=== PATIENT | male | born 1970 | race Caucasian/White ===

== ENCOUNTER 2016-05-13 15:34 | Emergency (ER) | payer SELFPAY ==
--- NOTE | 2016-05-13 16:41 | DIAGNOSTIC IMAGING REPORT ---
PROCEDURE: XR CHEST 1 VIEW INDICATION: CHEST PAIN TECHNIQUE: Portable AP view (1615 hours). COMPARISON: None. FINDINGS: Allowing for overlying wires and electrodes, lungs are clear. Heart and mediastinum are normal. Thorax is normal. IMPRESSION: 1. Negative chest.
--- NOTE | 2016-05-13 18:45 | ED CLINICAL REPORT ---
Clinical Report - Physicians/Mid Levels [facility] [address] [place] [address] 05/13/2016 15:36 Patient: BIANKA RAMACHANDRAN Time Seen: 15:43. Arrived- By private vehicle. Historian- patient. HISTORY OF PRESENT ILLNESS Chief Complaint: CHEST PAIN. At its maximum, severity described as moderate. When seen in the E.D., it was almost gone. Modifying factors- worsened by deep breaths. Not relieved by anything. This started about 2 days ago and is still present but is better now. Onset during emotional upset. It is described as sharp and "pain" and it is described as located in the left chest area. No radiation. No nausea, vomiting or diaphoresis. He has had difficulty breathing (Pt states he begins to feel anxious, then feels SOB. Pt states he has been under a lot of stress lately.). Similar symptoms previously: Occasionally. Recent medical care: Not recently seen/assessed. REVIEW OF SYSTEMS No fever, chills, cough, pedal edema or calf pain. No fainting episodes, headache, sore throat, blurred vision or abdominal pain. No black stools, difficulty with urination, skin rash, enlarged lymph nodes or joint pain. No bloody stools. All systems otherwise negative, except as recorded above. PAST HISTORY Problems: no known problems. Additional Surgeries: no known surgeries. Medications: Aspirin Oral (Tablet 325 mg) 2 tablets (took this AM). Allergies: No Known Drug Allergy. SOCIAL HISTORY Smoker- current status unknown. Regular alcohol use; consumes two beers a week. No drug use. ADDITIONAL NOTES The nursing notes have been reviewed. PHYSICAL EXAM Vital Signs: 05/13/2016 15:42 BP: 182/120. HR: 101. RR: 16. O2 saturation: 94%. Temp: 100.2 F. Pain level now: 6/10. Have been reviewed. Appearance: Alert. Oriented X3. No acute distress. Eyes: Pupils equal, round and reactive to light. Eyes normal inspection. ENT: Nose normal. Neck: Normal inspection. CVS: Normal heart rate and rhythm. Heart sounds normal. Pulses normal. Respiratory: No respiratory distress. Chest pain reproducible with palpation of the anterior chest wall. Breath sounds normal. Abdomen: Soft and nontender. Back: Normal external inspection. No CVA tenderness. Skin: Skin warm and dry. Normal skin color. No rash. Normal skin turgor. Extremities: Extremities exhibit normal ROM. No lower extremity edema. Neuro: Oriented X 3. No motor deficit. No sensory deficit. LABS, X-RAYS, AND EKG EKG: EKG time: (1549). No acute ischemia. Rate: 102. Regular narrow-complex tachycardia. Sinus tachycardia. Normal P waves. Normal LILLI. Normal QRS complex. Normal axis. Normal ST and T waves, QT and QTc. Prior EKG unavailable. The study has been interpreted contemporaneously by me. The study has been independently viewed by me. The EKG appears to be a good tracing. I agree with and confirm the computer reading of the EKG. Rhythm Strip #1: Time: (1547). Rate= 103. Sinus tachycardia. Regular rhythm. Narrow QRS complexes. No ectopy. Conduction normal. Normal ST segments and T waves. The study was interpreted by me. Chest X-ray: No acute disease. Normal lung markings present. Normal heart size. Mediastinum normal. Great vessels normal. Soft tissues normal. No infiltrate. No fracture. No bony lesion present. Views: AP (portable). Technique: good. The X-rays were independently viewed by me, interpreted by the radiologist and contemporaneously by me and discussed with the radiologist. Prior films were not available for comparison. Laboratory Tests: CBC w Diff: (JOHANNA: 05/13/2016 15:45) ( MsgRcvd 05/13/2016 16:52) Final results Test Result Flag Units (Reference) WHITE BLOOD COUNT 11.3 K/uL (4.5-11.5) RED BLOOD COUNT 6.02 *H M/uL (4.50-5.90) HEMOGLOBIN 18.5 H gm/dL (13.5-17.5) HEMATOCRIT 55.0 H % (41.0-53.0) MEAN CELL VOLUME 92 fL (80-100) MEAN CORPUSCULAR HGB 31 pg (26-34) MEAN CORPUSCULAR HGB CONC 34 g/dL (31-37) RED CELL DISTRIBUTION WIDTH 13.8 % (11.6-14.8) PLATELET COUNT 262 K/uL (150-400) NEUTROPHIL % 69.2 % (50-75) LYMPH % 20.3 L % (25-40) MONO % 7.8 % (3-14) EOSINOPHIL % 2.4 % (0-4) BASOPHIL % 0.3 % (0-2) RBC MORPHOLOGY 1+ ERYTHROCYTOSIS [id number]: (JOHANNA: 05/13/2016 15:45) ( [facility] 05/13/2016 16:16) Final results Test Result Flag Units (Reference) D-DIMER QUANTITATIVE < 0.27 L ug/mLFEU (0.27-0.52) The primary value of this quantitative assay relates toits negative predictive value (i.e. exclusion) of pulmonaryembolism/deep vein thrombosis/DIC.Elevated levels of d-dimer may also occur with:, age, cancer, inflammation, liver disease,post-op, infection, hematoma, coronary disease, peripheralarteriopathy, bleeding disorders and thrombolytic treatment.Results should be correlated with other clinical andradiological data.Testing Methodology: Latex Immunoassay Troponin-I: (JOHANNA: 05/13/2016 18:10) ( [facility] 05/13/2016 18:39) Final results Test Result Flag Units (Reference) TROPONIN I 0.05 ng/mL (0.00-1.5) TROPONIN REFERENCE RANGE:<0.1 NEGATIVE0.1-1.5 INDETERMINANT>1.5 POSITIVE BNP: (JOHANNA: 05/13/2016 15:45) ( [facility] 05/13/2016 16:37) Final results Test Result Flag Units (Reference) B-TYPE NATRIURETIC PEPTIDE 6.4 pg/ml (5-100) CHEM 13 PANEL: (JOHANNA: 05/13/2016 15:45) ( [facility] [place] [place] 05/13/2016 16:16) Final results Test Result Flag Units (Reference) GLUCOSE 115 H mg/dL (70-110) BUN 10 mg/dL (7-18) CREATININE 1.3 mg/dL (0.6-1.3) Estimated GFR >60 mL/min Estimated GFR- >60 mL/min Note: Persistent reduction over 3 months in eGFR<60 mL/min/1.73 m2 defines CKD. Patients with eGFR values>=60 mL/min/1.73 m2 may also have CKD if evidence ofpersistent proteinuria. Additional information may be foundat [email or web address].org. SODIUM 141 mmol/L (136-145) POTASSIUM 4.1 mmol/L (3.5-5.1) CHLORIDE 103 mmol/L (98-107) CARBON DIOXIDE 28 mmol/L (21-32) CALCIUM 9.1 mg/dL (8.5-10.1) TOTAL PROTEIN 8.1 g/dL (6.4-8.2) ALBUMIN 3.8 g/dL (3.3-5.0) BILIRUBIN, TOTAL 0.2 mg/dL (0.0-1.0) ALKALINE PHOSPHATASE 108 U/L (46-116) AST (SGOT) 28 U/L (15-37) ALT (SGPT) 59 U/L (12-78) MAGNESIUM 2.0 mg/dL (1.8-2.4) CPK 230 U/L (24-260) TROPONIN I 0.08 ng/mL (0.00-1.5) TROPONIN REFERENCE RANGE:<0.1 NEGATIVE0.1-1.5 INDETERMINANT>1.5 POSITIVE . Pulse Oximetry: 05/13/2016 15:42 O2 saturation: 94%. (FIO2 - room air). Interpretation: normal. PROGRESS AND PROCEDURES Course of Care: Pt was worked up for his CP and SOB episodes. EKG was unremarkable, other than mild tachycardia. D-dimer was negative. Initial troponin was slightly above negative, so I did repeat this a couple of hours later, to be sure the level was not trending up. Repeat level was lower than the initial. I did d/w the pt that his sx may be due to anxiety, considering the extreme stress he has been under lately; however, he should follow up with his PCP for a stress test, to determine whether there is any significant coronary artery disease, putting him at risk for PR. Patient counseled in person regarding the patient's stable condition, test results, diagnosis and need for additional testing and follow-up. Concerns were addressed. Old medical records reviewed. Disposition: Discharged. Condition: stable and improved. CLINICAL IMPRESSION Chest pain .12 lead EKG performed. Acute dyspnea INSTRUCTIONS Do not work today. (Your labs, EKG and x-ray look good. Your repeat heart labs are completely normal. Your oxygen is a little low, and this likely indicates some stress to your lungs from smoking. It is important for you to follow up with your doctor to discuss having a stress test done, as you do have some risk factors for a heart attack.). Warnings: GENERAL WARNINGS: Return or contact your physician immediately if your condition worsens or changes unexpectedly, if not improving as expected, or if other problems arise. Your Current Medications: CONTINUE TAKING THE FOLLOWING MEDICATIONS: Aspirin Oral : Tablet 325 mg, 2 tablets, took this AM. Follow-up: Follow up with your doctor. Call for the next available appointment. Reason for referral: Follow up for a cardiac stress test. Understanding of the discharge instructions verbalized by patient. (Electronically signed by Manisha Olmos MD 05/23/2016 14:33)
--- NOTE | 2016-05-13 18:45 | ED ORDER SUMMARY ---
..... Patient: BIANKA RAMACHANDRAN OrderSheet [facility] VisitID: [id number] [place] [address] 46y, M Registration Date/Time: 05/13/2016 ORDER SHEET Weight: 100.6 kg Allergies: No Known Drug Allergy GENERAL ORDERS: Cost Engineer (Continuous) (15:53 05/13/2016 Rosanna CLAY) (15:57 Leonila R.N.) Cardiac Panel Stat (15:54 05/13/2016 Rosanna CLAY) (Ack 15:55 Nina) (15:57 omanelli R.N.) D-Dimer Urgent (15:54 05/13/2016 Rosanna CLAY) (Ack 15:55 Nina) (15:57 Leonila R.N.) BNP Urgent (15:54 05/13/2016 Rosanna CLAY) (Ack 15:55 MYRAoerner) (15:57 omanelli R.N.) Oxygen (2 L/min) (NC) (15:54 05/13/2016 Rosanna CLAY) (15:57 Leonila R.N.) Pulse oximeter (15:54 05/13/2016 Rsoanna CLAY) (15:57 Leonila R.N.) EKG - ER Stat (15:54 05/13/2016 Rosanna CLAY) (Ack 15:55 Nina) (15:57 omanelli R.N.) Chest 1V Urgent (16:01 05/13/2016 Leonila R.N. verbal order read back to Rosanna CLAY) (Ack 16:02 Nina) (16:10 KHoerner) Troponin-I Urgent (17:57 05/13/2016 Rosanna CLAY) (Ack 18:04 Nina) (18:08 KHoerner) MEDICATION ORDERS: IV FLUIDS: IV NS : initial bolus 1000 mL (1000 mL/hr), then none - (NOW) (15:54 05/13/2016 Rosanna CLAY) (16:00 JRomanelli R.N.) ORDER SHEET NOTES: [Electronically signed by Jyoti Osorio R.N. (18:59 05/17/2016)] [Electronically signed by Manisha Olmos MD (14:33 05/23/2016)] [Electronically locked/signed by Jyoti Osorio R.N. (18:59 05/17/2016)]
--- NOTE | 2016-05-13 18:45 | ED NURSING NOTES ---
Clinical Report - Nurses [facility] [address] [place] [address] 05/13/2016 15:36 Patient: BIANKA RAMACHANDRAN TRIAGE Triage time 15:40 May 13 2016. Acuity: LEVEL 3. Chief Complaint: CHEST PAIN. Alert. TEMITOPE COMA SCORE: [place] Coma Scale: 15- eyes open spontaneously (4); best verbal response- oriented x 4 (5); best motor response- obeys commands (6). --15:56 Alberto Serna R.N. 15:42 05/13/16. BP: 182/120. HR: 101. RR: 16. O2 saturation: 94%. Temp: 100.2 F. Pain level now: 6/10. Additional comments: (L) Chest Pain. --15:56 Alberto Serna R.N. Weight: 100.6 kg. Height/Length: 70 inches Per Patient. BMI: 31.8. --15:53 Alberto Serna R.N. Medications Aspirin Oral (Tablet 325 mg) 2 tablets (took this AM). --15:44 Alberto Serna R.N. Medication/allergy information source: the patient. --15:56 Alberto Serna R.N. Allergies No Known Drug Allergy. --15:45 Alberto Serna R.N. History Arrived by private vehicle. Historian: patient. Primary physician (none). ( Chest Pain located mostly on the (L) associated with SOB). Onset. (about 2 days ago). Treatment MANAGER ART: None. PAST MEDICAL HX: Negative. SURGERY HX: No history of previous surgery. SOCIAL HX: Former smoker (cigarette)- less than 1 pack per day. Alcohol use; consumes two beers a week. No drug use. No infectious disease exposure. ABUSE ASSESSMENT: No report of abuse. FALL RISK ASSESSMENT: Fall risk assessment completed. No fall risk identified. NUTRITIONAL RISK ASSESSMENT: The nutritional risk assessment revealed no deficiencies. FUNCTIONAL ASSESSMENT: Functional assessment: no impairments noted. LEARNING NEEDS ASSESSMENT: The learning needs assessment revealed no barriers. SKIN INTEGRITY ASSESSMENT: Skin integrity risk assessment completed. No skin integrity risk identified. --15:56 Alberto Serna R.N. Interventions ID band on patient. To treatment room. --15:56 Alberto Serna R.N. NURSING PROGRESS NOTES auto glass technician, pulse oximeter and NIBP monitor placed on patient; cardiac rehabilitation program director- Lead II and V1; monitor alarms on. Patient gowned. Reassurance given. Patient identifiers checked. Call light placed in reach. Side rails up x 1. Bed placed in lowest position. Brakes of bed on. Patient ready for evaluation- chart flagged and ED physician notified. --15:57 Alberto Serna R.N. 15:44 05/13/2016 Site #1 started via IV in the left antecubital space with an 18g angiocath, with aseptic technique and good blood return; one attempt. Blood drawn: rainbow set. Labeled in the presence of the patient and sent to the lab. Saline lock flushed with 10 mL saline (start by Amarjit García RN). --15:59 Alberto Serna R.N. 16:00 05/13/2016 Started bag #1 1000 mL IV Fluids IV NS (Saline); at 1000 mL/hr over 60 minute(s) via site #1 --16:00 Alberto Serna R.N. EKG time: (1549). EKG was ordered, performed by a tech and shown to the ED physician. --16:00 Renee Mcgovern ER Tech1 16:30 05/13/16. BP: 160/113. HR: 94. RR: 16. O2 saturation: 96% on nasal cannula at 2 liters/minute. Pain level now: 4/10. Additional comments: Chest Pain. --16:42 Alberto Serna R.N. 18:15 05/13/16. BP: 160/117. HR: 82. RR: 16. O2 saturation: 94% on nasal cannula at 2 liters/minute. --18:18 Alberto Serna R.N. 17:05 05/13/2016 IV Fluids IV NS Discontinued: bag #1 infused. Total amount infused: 1000 mL. IV patency established. IV site checked: no pain, redness, or swelling. IV flushed thoroughly. --18:22 Alberto Serna R.N. DISPOSITION / DISCHARGE 19:20 05/13/2016 Site #1 removed upon discharge. Catheter intact. Pressure dressing applied. --19:20 Jyoti Osorio R.N. 19:22 05/13/16. Cardiac rhythm: normal sinus rhythm. Condition at departure: improved and stable. The goals identified in the patient's plan of care were met. No learning barriers present. Discharge instructions provided and reviewed with the patient. Reviewed referral to a primary care physician for followup. Summary of care provided to patient via paper. Patient verbalized understanding. Written instructions provided in Salvadorean. The patient was discharged home and unaccompanied at time of discharge. He left the Emergency Department ambulatory and via private vehicle. Patient driving. FALL RISK ASSESSMENT: Fall risk assessment completed. No fall risk identified. --19:22 Jyoti Osorio R.N. 19:20 05/13/16. BP: 131/98. HR: 79. RR: 16. O2 saturation: 95%. Temp: 98.4 F. Pain level now: 0/10. --19:22 Jyoti Osorio R.N. Departure time: 19:May 13 2016. --19:22 Jyoti Osorio R.N. Locked/Released at 05/17/2016 18:59 by Jyoti Osorio R.N.
--- NOTE | 2016-05-13 18:45 | ED NURSING NOTES ---
Clinical Report - Nurses [facility] [address] [place] [address] 05/13/2016 15:36 Patient: BIANKA RAMACHANDRAN TRIAGE Triage time 15:40 May 13 2016. Acuity: LEVEL 3. Chief Complaint: CHEST PAIN. Alert. TEMITOPE COMA SCORE: [place] Coma Scale: 15- eyes open spontaneously (4); best verbal response- oriented x 4 (5); best motor response- obeys commands (6). --15:56 Alberto Serna R.N. 15:42 05/13/16. BP: 182/120. HR: 101. RR: 16. O2 saturation: 94%. Temp: 100.2 F. Pain level now: 6/10. Additional comments: (L) Chest Pain. --15:56 Alberto Serna R.N. Weight: 100.6 kg. Height/Length: 70 inches Per Patient. BMI: 31.8. --15:53 Alberto Serna R.N. Medications Aspirin Oral (Tablet 325 mg) 2 tablets (took this AM). --15:44 Alberto Serna R.N. Medication/allergy information source: the patient. --15:56 Alberto Serna R.N. Allergies No Known Drug Allergy. --15:45 Alberto Serna R.N. History Arrived by private vehicle. Historian: patient. Primary physician (none). ( Chest Pain located mostly on the (L) associated with SOB). Onset. (about 2 days ago). Treatment MAGNETIC HEALER: None. PAST MEDICAL HX: Negative. SURGERY HX: No history of previous surgery. SOCIAL HX: Former smoker (cigarette)- less than 1 pack per day. Alcohol use; consumes two beers a week. No drug use. No infectious disease exposure. ABUSE ASSESSMENT: No report of abuse. FALL RISK ASSESSMENT: Fall risk assessment completed. No fall risk identified. NUTRITIONAL RISK ASSESSMENT: The nutritional risk assessment revealed no deficiencies. FUNCTIONAL ASSESSMENT: Functional assessment: no impairments noted. LEARNING NEEDS ASSESSMENT: The learning needs assessment revealed no barriers. SKIN INTEGRITY ASSESSMENT: Skin integrity risk assessment completed. No skin integrity risk identified. --15:56 Alberto Serna R.N. Interventions ID band on patient. To treatment room. --15:56 Alberto Serna R.N. NURSING PROGRESS NOTES curing press operator, pulse oximeter and NIBP monitor placed on patient; rn cardiac- Lead II and V1; monitor alarms on. Patient gowned. Reassurance given. Patient identifiers checked. Call light placed in reach. Side rails up x 1. Bed placed in lowest position. Brakes of bed on. Patient ready for evaluation- chart flagged and ED physician notified. --15:57 Alberto Serna R.N. 15:44 05/13/2016 Site #1 started via IV in the left antecubital space with an 18g angiocath, with aseptic technique and good blood return; one attempt. Blood drawn: rainbow set. Labeled in the presence of the patient and sent to the lab. Saline lock flushed with 10 mL saline (start by Amarjit García RN). --15:59 Alberto Serna R.N. 16:00 05/13/2016 Started bag #1 1000 mL IV Fluids IV NS (Saline); at 1000 mL/hr over 60 minute(s) via site #1 --16:00 Alberto Serna R.N. EKG time: (1549). EKG was ordered, performed by a tech and shown to the ED physician. --16:00 Renee Mcgovern ER Tech1 16:30 05/13/16. BP: 160/113. HR: 94. RR: 16. O2 saturation: 96% on nasal cannula at 2 liters/minute. Pain level now: 4/10. Additional comments: Chest Pain. --16:42 Alberto Serna R.N. 18:15 05/13/16. BP: 160/117. HR: 82. RR: 16. O2 saturation: 94% on nasal cannula at 2 liters/minute. --18:18 Alberto Serna R.N. 17:05 05/13/2016 IV Fluids IV NS Discontinued: bag #1 infused. Total amount infused: 1000 mL. IV patency established. IV site checked: no pain, redness, or swelling. IV flushed thoroughly. --18:22 Alberto Serna R.N. DISPOSITION / DISCHARGE 19:20 05/13/2016 Site #1 removed upon discharge. Catheter intact. Pressure dressing applied. --19:20 Jyoti Osorio R.N. 19:22 05/13/16. Cardiac rhythm: normal sinus rhythm. Condition at departure: improved and stable. The goals identified in the patient's plan of care were met. No learning barriers present. Discharge instructions provided and reviewed with the patient. Reviewed referral to a primary care physician for followup. Summary of care provided to patient via paper. Patient verbalized understanding. Written instructions provided in Croatian. The patient was discharged home and unaccompanied at time of discharge. He left the Emergency Department ambulatory and via private vehicle. Patient driving. FALL RISK ASSESSMENT: Fall risk assessment completed. No fall risk identified. --19:22 Jyoti Osorio R.N. 19:20 05/13/16. BP: 131/98. HR: 79. RR: 16. O2 saturation: 95%. Temp: 98.4 F. Pain level now: 0/10. --19:22 Jyoti Osorio R.N. Departure time: 19:May 13 2016. --19:22 Jyoti Osorio R.N. Locked/Released at 05/17/2016 18:59 by Jyoti Osorio R.N.
--- NOTE | 2016-05-13 18:45 | ED ORDER SUMMARY ---
..... Patient: BIANKA RAMACHANDRAN OrderSheet [facility] VisitID: [id number] [place] [address] 46y, M Registration Date/Time: 05/13/2016 ORDER SHEET Weight: 100.6 kg Allergies: No Known Drug Allergy GENERAL ORDERS: Hairspring Vibrator (Continuous) (15:53 05/13/2016 Rosanna CLAY) (15:57 Leonila R.N.) Cardiac Panel Stat (15:54 05/13/2016 Rosanna CLAY) (Ack 15:55 Nina) (15:57 omanelli R.N.) D-Dimer Urgent (15:54 05/13/2016 Rosanna CLAY) (Ack 15:55 Nina) (15:57 Leonila R.N.) BNP Urgent (15:54 05/13/2016 Rosanna CLAY) (Ack 15:55 MYRAoerner) (15:57 omanelli R.N.) Oxygen (2 L/min) (NC) (15:54 05/13/2016 Rosanna CLAY) (15:57 Leonila R.N.) Pulse oximeter (15:54 05/13/2016 Rosanna CLAY) (15:57 Leonila R.N.) EKG - ER Stat (15:54 05/13/2016 Rosanna CLAY) (Ack 15:55 Nina) (15:57 omanelli R.N.) Chest 1V Urgent (16:01 05/13/2016 Leonila R.N. verbal order read back to Rosanna CLAY) (Ack 16:02 Nina) (16:10 KHoerner) Troponin-I Urgent (17:57 05/13/2016 Rosanna CLAY) (Ack 18:04 Nina) (18:08 KHoerner) MEDICATION ORDERS: IV FLUIDS: IV NS : initial bolus 1000 mL (1000 mL/hr), then none - (NOW) (15:54 05/13/2016 Rosanna CLAY) (16:00 JRomanelli R.N.) ORDER SHEET NOTES: [Electronically signed by Jyoti Osorio R.N. (18:59 05/17/2016)] [Electronically signed by Manisha Olmos MD (14:33 05/23/2016)] [Electronically locked/signed by Jyoti Osorio R.N. (18:59 05/17/2016)]
--- NOTE | 2016-05-23 14:34 | ED DISCHARGE INSTRUCTIONS ---
Patient: BIANKA RAMACHANDRAN General Instructions Located Within [facility] VisitID: [id number] [place] [address] 46y, M Registration Date/Time: 05/13/2016 Chest pain .12 lead EKG performed. Acute dyspnea INSTRUCTIONS Do not work today. (Your labs, EKG and x-ray look good. Your repeat heart labs are completely normal. Your oxygen is a little low, and this likely indicates some stress to your lungs from smoking. It is important for you to follow up with your doctor to discuss having a stress test done, as you do have some risk factors for a heart attack.). Warnings: GENERAL WARNINGS: Return or contact your physician immediately if your condition worsens or changes unexpectedly, if not improving as expected, or if other problems arise. Your Current Medications: CONTINUE TAKING THE FOLLOWING MEDICATIONS: Aspirin Oral : Tablet 325 mg, 2 tablets, took this AM. Follow-up: Follow up with your doctor. Call for the next available appointment. Reason for referral: Follow up for a cardiac stress test. Understanding of the discharge instructions verbalized by patient. ADDITIONAL INFORMATION Chest Pain, Uncertain Cause Chest pain can happen for a number of reasons. Sometimes the cause can not be determined. If yourcondition does not seem serious, and your pain does not appear to be coming from your heart, your doctor may recommend watching it closely. Sometimes the signs of a serious problem take more time to appear. Therefore, watch for the warning signs listed below. Home care After your visit, follow these recommendations: Rest today and avoid strenuous activity. Take any prescribed medicine as directed. Follow-up care Follow up with your doctor or this facility as instructed or if you do not start to feel better within 24 hours. Call 911 Get immediate medical attention if any of the following occur: A change in the type of pain: if it feels different, becomes more severe, lasts longer, or begins to spread into your shoulder, arm, neck, jaw or back Shortness of breath or increased pain with breathing Weakness, dizziness, or fainting Rapid heart beat Get prompt medical attention Call your doctor right away if any of the following occur: Cough with dark colored sputum (phlegm) or blood Fever of 100.4F(38C) or higher, or as directed by your health care provider Swelling, pain or redness in one leg Dyspnea (Shortness Of Breath) Shortness of Breath (also known as "Dyspnea") is the sense that you can't catch your breath or can't get enough air. Dyspnea can be caused by many different conditions such as: Acute asthma attack Worsening of emphysema (also called "COPD") -- a lung diseasethat is caused by smoking A mucus plug blocks a large air passage in the lung -- this can occur with emphysema or chronic bronchitis Congestive Heart Failure ("CHF") -- when a weak heart muscle allows excess fluid to collect inthe lungs Panic attacks, anxiety -- fear can cause rapid breathing ("hyperventilation") Pneumonia -- infection in the lung tissue Exposure to toxic fumes or smoke Pulmonary embolus (blood clot to the lung) Based on your visit today, the exact cause of your shortness of breath is not certain. Your tests do not show any of the serious causes of dyspnea. Sometimes, further testing is needed to find out if a serious problem exists. Therefore, it is important for you to watch for any new symptoms or worsening of your condition and follow up with your doctor as directed. Home Care: When your symptoms are better, resume your usual activities. If you smoke, you need to stop. Join a stop-smoking program or ask your doctor for help. Follow Up with your doctor or as advised by our staff. Get Prompt Medical Attention if any of the following occur: Increasing shortness of breath or wheezing Redness, pain or swelling in one leg Swelling in both legs or ankles Unexpected weight gain Chest, arm, shoulder, neck or upper back pain Dizziness, weakness or fainting Palpitations (the sense that your heart is fluttering, beating fast or hard) Fever of 100.4F (38C) or higher, or as directed by your healthcare provider Cough with dark colored or bloody sputum (mucus) You have been given the following additional information: Chest Pain, Uncertain Cause Dyspnea Do not work today. (Electronically signed by Manisha Olmos MD 05/23/2016 14:33)
--- NOTE | 2016-05-23 14:34 | ED MAR SUMMARY ---
..... Medication Administration Record [facility] [address] [place] [address] Patient: BIANKA RAMACHANDRAN Visit ID: [id number] 46y, M Weight: 100.6 kg Height/Length: 70 in BMI: 31.8 ALLERGIES: No Known Drug Allergy Start 16:00 05/13/2016 Alberto Serna RJaimieN., Stop 17:05 05/13/2016 Alberto Serna RJaimieN. Medication Administered: IV NS (SALINE), Dose: IV Fluids over 60 minute(s), Rate: 1000 mL/hr, Dispensed: 1000 mL bag, Site: #1 left AC. Medication Ordered: IV NS : initial bolus 1000 mL (1000 mL/hr), then none - (NOW).
--- NOTE | 2016-05-23 14:34 | ED MED RECONCILIATION SUMMARY ---
Patient: BIANKA RAMACHANDRAN Medication Reconciliation Report [facility] VisitID: [id number] [address] [place] [address] 46y, M Registration Date/Time: 05/13/2016 Weight: 100.6 kg Height/Length: 70 in. BMI: 31.8 ALLERGIES: No Known Drug Allergy The patient's Home Medications are listed below: CONTINUE TAKING THE FOLLOWING MEDICATIONS: Aspirin Oral (325 mg) 2 tablets, took this AM The source(s) of the original Home Medication information: patient The following Medications were given to the patient in the Emergency Department: IV NS IV Fluids bolus 0, then 1000 mL/hr, administered: 05/13/2016 4:00:00 PM The following Medications were prescribed to the patient: None.
--- NOTE | 2016-05-23 14:34 | ED MAR SUMMARY ---
..... Medication Administration Record [facility] [address] [place] [address] Patient: BIANKA RAMACHANDRAN Visit ID: [id number] 46y, M Weight: 100.6 kg Height/Length: 70 in BMI: 31.8 ALLERGIES: No Known Drug Allergy Start 16:00 05/13/2016 Alberto Serna RJaimieN., Stop 17:05 05/13/2016 Alberto Serna RJaimieN. Medication Administered: IV NS (SALINE), Dose: IV Fluids over 60 minute(s), Rate: 1000 mL/hr, Dispensed: 1000 mL bag, Site: #1 left AC. Medication Ordered: IV NS : initial bolus 1000 mL (1000 mL/hr), then none - (NOW).
--- NOTE | 2016-05-23 14:34 | ED MED RECONCILIATION SUMMARY ---
Patient: BIANKA RAMACHANDRAN Medication Reconciliation Report [facility] VisitID: [id number] [address] [place] [address] 46y, M Registration Date/Time: 05/13/2016 Weight: 100.6 kg Height/Length: 70 in. BMI: 31.8 ALLERGIES: No Known Drug Allergy The patient's Home Medications are listed below: CONTINUE TAKING THE FOLLOWING MEDICATIONS: Aspirin Oral (325 mg) 2 tablets, took this AM The source(s) of the original Home Medication information: patient The following Medications were given to the patient in the Emergency Department: IV NS IV Fluids bolus 0, then 1000 mL/hr, administered: 05/13/2016 4:00:00 PM The following Medications were prescribed to the patient: None.
== END 2016-05-13 19:22 | disposition home or self-care (01) ==
LOC: ED SRH 15:34
DX: R07.9 Chest pain, unspecified (principal); R06.00 Dyspnea, unspecified
CPT/HCPCS: 90100; 90616; 91320; 91556; 92610; 92720; 95059